=== PATIENT | female | born 1960 | race Caucasian/White ===

== ENCOUNTER 2022-08-05 08:33 | Emergency (ER) | payer MEDICAID ==
[~2022-08-05] VITALS: Ht 152.4 cm; Wt 74.8 kg
[2022-08-05 08:40] VITALS: BP_SYST 100
[2022-08-05] MEDS ORDERED: ONDANSETRON 4 MG ODT TAB PO ONE (08:45)
[2022-08-05] MEDS ORDERED: IBUPROFEN 800 MG TABLET PO ONE (08:45)
[2022-08-05 08:58] LABS: BILIRUBIN,URINE NEGATIVE (NEGATIVE); BLOOD, URINE NEGATIVE (NEGATIVE); CLARITY/URINE CLEAR (CLEAR); COLOR,URINE YELLOW (YELLOW); GLUCOSE,URINE NEGATIVE (NEGATIVE); KETONES,URINE NEGATIVE (NEGATIVE); LEUKOCYTE ESTERASE ,URINE NEGATIVE (NEGATIVE); NITRITE, URINE NEGATIVE (NEGATIVE); PROTEIN URINE NEGATIVE (NEGATIVE); UROBILINOGEN,URINE 0.2 (0.2-1.0)
[2022-08-05 09:15] LABS: BASOPHILS % (AUTO) 0.3 % (0.0-2.0); HEMATOCRIT 44.3 % (36-48); HEMOGLOBIN 14.5 g/dL (12.0-16.0); LYMPHOCYTES # (AUTO) 0.7 K/uL (1.0-5.5); LYMPHOCYTES % (AUTO) 6.5 % (20.5-51.5); MEAN CORPUSCULAR HEMOGLOBIN 29 pg (27-31); MEAN CORPUSCULAR HGB CONC 33 % (32-36); MEAN CORPUSCULAR VOLUME 88 fL (79.0-98.0); MONOCYTES # (AUTO) 0.3 K/uL (0.0-1.0); MONOCYTES % (AUTO) 2.8 % (1.7-9.3); NEUTROPHILS # (AUTO) 9.8 K/uL (1.8-7.7); NEUTROPHILS % (AUTO) 90.4 % (40.0-70.0); PLATELET COUNT (AUTO) 216 K/uL (130-430); RED BLOOD CELL COUNT(AUTO) 5.03 MIL/uL (4.2-6.2); RED CELL DISTRIBUTION WIDTH 14.9 % (9.0-15.0); WHITE BLOOD COUNT (AUTO) 10.8 K/uL (4.8-10.8)
[2022-08-05 09:19] LABS: ANION GAP 8 (5-15); CALCIUM 8.4 mg/dL (8.4-11.0); CHLORIDE 103 mmol/L (98-107); CREATININE 0.94 mg/dL (0.55-1.30); GFR AFRICAN AMERICAN 78 mL/min (>90); GLUCOSE 132 mg/dL (70-99); UREA NITROGEN, BLOOD 13 mg/dL (8-21)
[2022-08-05 09:23] LABS: ALANINE AMINOTRANSFERASE 20 U/L (12-78); ALBUMIN 3.9 g/dL (3.4-4.8); AMYLASE 46 U/L (0-100); ASPARTATE AMINOTRANSFERASE 16 U/L (10-37); C-REACTIVE PROTEIN QUANT 0.2 mg/dL (0-0.5); LIPASE 98 U/L (73-393); TOTAL BILIRUBIN 0.7 mg/dL (0.0-1.0)
[2022-08-05 09:45] LABS: ACETONE, SERUM NEGATIVE (NEGATIVE)
[2022-08-05] MEDS ORDERED: TRAM50TA2 PO (10:43)
[2022-08-05] MEDS ORDERED: ONDA-8 TL (10:43)
[2022-08-05] MEDS ORDERED: IBUP-1969 PO (10:43)
[2022-08-05] MEDS ORDERED: OMEP20CA15 PO (11:21)
[2022-08-05 11:30] VITALS: BP_SYST 129
== END 2022-08-05 11:30 | disposition home or self-care (01) ==
LOC: SED 08:33
DX: A05.9 Bacterial foodborne intoxication, unspecified (principal); R10.84 Generalized abdominal pain; R11.10 Vomiting, unspecified; R19.7 Diarrhea, unspecified; Z79.899 Other long term (current) drug therapy
CPT/HCPCS: 99284; 74176; 76705; 80053; 82009; 82150; 83690; 85025; 86140; 36415; 76376; 83605; 81003; Q0162